=== PATIENT | female | born 1945 | race Two or more races ===

== ENCOUNTER → 2020-01-20 | Outpatient (CLI) | payer OTHER | END | disposition home or self-care (01) | LOC: MAMO-SONO 10:21 | DX: Z12.31 Encounter for screening mammogram for malignant neoplasm of breast (principal); Z87.898 Personal history of other specified conditions; D51.0 Vitamin B12 deficiency anemia due to intrinsic factor deficiency; D51.3 Other dietary vitamin B12 deficiency anemia; E72.11 Homocystinuria; E72.12 Methylenetetrahydrofolate reductase deficiency; E03.8 Other specified hypothyroidism; E08.65 Diabetes mellitus due to underlying condition with hyperglycemia; E55.9 Vitamin D deficiency, unspecified; K31.83 Achlorhydria; I10 Essential (primary) hypertension; N20.0 Calculus of kidney; N63.10 Unspecified lump in the right breast, unspecified quadrant; N63.20 Unspecified lump in the left breast, unspecified quadrant ==

== ENCOUNTER 2020-01-25 08:26 | Outpatient (CLI) | payer OTHER | END 2020-01-25 08:49 | disposition home or self-care (01) | LOC: TOM 08:26 | DX: K57.30 Diverticulosis of large intestine without perforation or abscess without bleeding (principal); D12.3 Benign neoplasm of transverse colon; D12.8 Benign neoplasm of rectum; Z56.6 Other physical and mental strain related to work ==

== ENCOUNTER 2020-08-10 12:11 | Outpatient (CLI) | payer OTHER | END 2020-08-10 12:21 | disposition home or self-care (01) | LOC: NUCLEAR 12:11 | PROVIDERS: ATTEND Orthopaedic Surgery | DX: M81.0 Age-related osteoporosis without current pathological fracture (principal) ==

== ENCOUNTER 2021-01-16 08:51 | Outpatient (CLI) | payer OTHER | END 2021-01-16 09:23 | disposition home or self-care (01) | LOC: RAD 08:51 → NUCLEAR 08:51 → RAD 09:23 | PROVIDERS: ATTEND Orthopaedic Surgery | DX: M48.07 Spinal stenosis, lumbosacral region (principal); M54.5 Low back pain; M54.17 Radiculopathy, lumbosacral region | CPT/HCPCS: 72148 ==

== ENCOUNTER 2021-10-03 09:26 | Outpatient (CLI) | payer OTHER | END 2021-10-03 09:27 | disposition home or self-care (01) | LOC: LAB 09:26 | PROVIDERS: ATTEND Orthopaedic Surgery | DX: E88.89 Other specified metabolic disorders (principal); M85.88 Other specified disorders of bone density and structure, other site; E55.9 Vitamin D deficiency, unspecified; E21.2 Other hyperparathyroidism; M81.8 Other osteoporosis without current pathological fracture; E56.1 Deficiency of vitamin K ==

== ENCOUNTER 2021-10-19 12:25 | Outpatient (CLI) | payer OTHER | END 2021-10-19 12:26 | disposition home or self-care (01) | LOC: NUCLEAR 12:25 | PROVIDERS: ATTEND Orthopaedic Surgery | DX: M81.0 Age-related osteoporosis without current pathological fracture (principal) ==

== ENCOUNTER 2024-02-19 09:18 | Outpatient (CLI) | payer OTHER ==
[2024-02-19 11:10] LABS: HEMATOCRIT 39.7 % (36.0-45.00); HEMOGLOBIN 13.1 g/dL (12.0-15.00); MEAN CELL VOLUME 91.5 fL (80.00-100.00); MEAN CORPUSCULAR HEMOGLOBIN 30.2 pg (27.00-32.0); PLATELET COUNT 265 K/uL (150-450); RED BLOOD COUNT 4.33 M/uL (4.00-6.00); RED CELL DISTRIBUTION WIDTH 14.4 % (11.5-14.5)
[2024-02-19 11:53] LABS: % SATURACION 23.6 % (15-50); ALBUMIN 3.5 gm/dL (3.4-5.0); BILIRUBIN TOTAL 0.38 mg/dL (0.3-1.2); CALCIUM 9.6 mg/dL (8.5-10.1); CREATININE SERUM 0.8 mg/dL (0.55-1.02); FERRITIN 64.8 NG/ML (8-252); GFR 69.55; GLOBULINA 3.7 G/DL (2.4-3.5); POTASSIUM 4.46 mEq/L (3.5-5.1); TOTAL PROTEIN 7.2 gm/dL (6.4-8.2)
[2024-02-19 12:13] LABS: FOLIC ACID > 20.00 ng/ml (4.78-20); VITAMIN D3 25 HYDROXY 95.41 ng/ml (30-120)
[2024-02-20 09:08] LABS: CA 125 8.5 U/mL (0.0-38.1); CA 15-3 26.5 U/mL (0.0-25.0); HOMOCYSTEINE 8.5 umol/L (0.0-19.2)
== END 2024-02-19 09:19 | disposition home or self-care (01) ==
LOC: LAB 09:18
PROVIDERS: ATTEND Internal Medicine Hematology & Oncology
DX: D68.61 Antiphospholipid syndrome (principal); D51.0 Vitamin B12 deficiency anemia due to intrinsic factor deficiency; D51.3 Other dietary vitamin B12 deficiency anemia; E72.12 Methylenetetrahydrofolate reductase deficiency; E03.9 Hypothyroidism, unspecified; E08.65 Diabetes mellitus due to underlying condition with hyperglycemia; E55.9 Vitamin D deficiency, unspecified; K31.83 Achlorhydria; I10 Essential (primary) hypertension; N20.0 Calculus of kidney; D50.8 Other iron deficiency anemias; R74.02 Elevation of levels of lactic acid dehydrogenase [LDH]; K76.89 Other specified diseases of liver; C50.919 Malignant neoplasm of unspecified site of unspecified female breast; R97.8 Other abnormal tumor markers; R97.1 Elevated cancer antigen 125 [CA 125]; R97.0 Elevated carcinoembryonic antigen [CEA]; C25.9 Malignant neoplasm of pancreas, unspecified